=== PATIENT | male | born 1980 | race Caucasian/White ===

== ENCOUNTER 2019-09-28 14:31 | Outpatient (CLI) | payer OTHER ==
--- NOTE | 2019-09-28 14:54 | RAD ---
Right knee 4 views HISTORY: Right knee pain. FINDINGS: Mild to moderate joint space narrowing at the medial compartment with mild osteophytosis. N o acute fracture, dislocation, or fluid distention of the suprapatellar bursa evident. IMPRESSION : Mild osteoarthritic changes medial compartment. No acute osseous abnormalities are demonstrated.
== END 2019-09-28 14:32 | disposition home or self-care (01) ==
LOC: BICRAD 14:31
PROVIDERS: ATTEND Specialist
DX: M25.561 Pain in right knee (principal); M17.11 Unilateral primary osteoarthritis, right knee

== ENCOUNTER 2021-09-19 15:25 | Outpatient (CLI) | payer BC | END 2021-09-19 15:26 | disposition home or self-care (01) | LOC: BICRAD 15:25 | PROVIDERS: ATTEND Specialist | DX: M25.572 Pain in left ankle and joints of left foot (principal) ==

== ENCOUNTER 2023-01-23 09:07 | Outpatient (CLI) | payer BC | END 2023-01-23 09:08 | disposition home or self-care (01) | LOC: RAD 09:07 | PROVIDERS: ATTEND Plastic Surgery Surgery of the Hand | DX: M25.561 Pain in right knee (principal); M17.11 Unilateral primary osteoarthritis, right knee ==